=== PATIENT | female | born 1990 | race African-American/Black ===

== ENCOUNTER 2022-03-26 01:51 | Emergency (ER) | payer MEDICAID ==
[~2022-03-26] VITALS: Ht 175.3 cm; Wt 220.0 kg
[2022-03-26 01:55] VITALS: BP 139/93
[2022-03-26] MEDS ORDERED: PREDNISONE 20MG TABLET PO ONE (02:30)
[2022-03-26] MEDS ORDERED: ALBU18HF2 IH (02:32)
[2022-03-26] MEDS ORDERED: P50 MT (02:32)
== END 2022-03-26 04:00 | disposition home or self-care (01) ==
LOC: ER 01:51
DX: J45.901 Unspecified asthma with (acute) exacerbation (principal); Z76.0 Encounter for issue of repeat prescription; F32.A Depression, unspecified; F41.9 Anxiety disorder, unspecified; Z88.8 Allergy status to other drugs, medicaments and biological substances; Z88.6 Allergy status to analgesic agent
CPT/HCPCS: 81025; 93005; 99283; J7512

== ENCOUNTER 2022-03-26 22:24 | Emergency (ER) | payer MEDICAID ==
[~2022-03-26] VITALS: Ht 167.6 cm; Wt 200.0 kg
[~2022-03-26 22:24] MED LIST: ALBU18HF2 IH; P50 MT
[2022-03-26 22:45] VITALS: BP 152/98
== END 2022-03-26 23:45 | disposition home or self-care (01) ==
LOC: ER 22:27
DX: Z76.5 Malingerer [conscious simulation] (principal); J45.909 Unspecified asthma, uncomplicated; E66.01 Morbid (severe) obesity due to excess calories; Z68.45 Body mass index [BMI] 70 or greater, adult; Z88.8 Allergy status to other drugs, medicaments and biological substances; Z88.6 Allergy status to analgesic agent
CPT/HCPCS: 99283

== ENCOUNTER 2022-05-21 01:45 | Emergency (ER) | payer MEDICAID ==
[~2022-05-21] VITALS: Ht 170.2 cm; Wt 170.0 kg
[2022-05-21 01:46] VITALS: BP 134/88
== END 2022-05-21 06:54 | disposition home or self-care (01) ==
LOC: ER 01:45
DX: R42 Dizziness and giddiness (principal); Z59.00 Homelessness unspecified; Z88.6 Allergy status to analgesic agent
CPT/HCPCS: 99283

== ENCOUNTER 2023-01-09 01:09 | Emergency (ER) | payer MEDICAID ==
[~2023-01-09] VITALS: Ht 167.6 cm; Wt 221.0 kg
[2023-01-09 01:11] VITALS: O2SAT 99
[2023-01-09] MEDS ORDERED: OLANZAPINE 5MG TABLET PO SCH (01:30)
[2023-01-09 02:16] LABS: HEMOGLOBIN. 9.8 g/dL (12.0-16.0)
[2023-01-09 02:18] VITALS: TEMP 98
[2023-01-09 02:25] LABS: PROTHROMBIN TIME 10.6 sec (9.6-11.0)
[2023-01-09 02:27] LABS: CHLORIDE 107 mEq/L (98-107); EOSINOPHILS % 4.6 % (0.0-5.0); INDEX HEMOLYSI 1 (1-3); INDEX ICTERIC 1 (1-4); INDEX LIPEMIC 1 (1-3); LYMPHOCYTES % 22.7 % (20.0-50.0); MONOCYTES % 10.6 % (2.0-8.0); NEUTROPHILS % 61.1 % (40.0-76.0); POTASSIUM 4.3 mEq/L (3.5-5.1); SODIUM 138 mEq/L (136-145)
[2023-01-09 02:28] LABS: HCG SCREEN NEGATIVE
[2023-01-09 02:32] LABS: DIFFERENTIAL COMMENT 1; WHITE BLOOD COUNT 5.3 x1000/uL (4.5-11.0)
[2023-01-09 02:33] LABS: HEMATOCRIT. 31.5 % (36.0-48.0); MEAN CORPUSCULAR HGB CONC 31.2 g/dL (31.0-37.0); MEAN CORPUSCULAR VOLUME 70.6 fL (81.0-99.0); RED BLOOD CELL COUNT 4.46 mill/uL (4.2-5.4); RED CELL DISTRIBUTION WIDTH 21.2 % (11.6-14.6)
[2023-01-09 02:34] LABS: ACETAMINOPHEN <2 ug/mL ug/mL (10-30); ALANINE AMINOTRANSFERASE 25 IU/L (13-61); ALBUMIN 3.4 g/dL (3.4-5.0); ASPARTATE AMINOTRANSFERASE 13 IU/L (15-37); BILIRUBIN TOTAL 0.3 mg/dL (0.1-1.0); CARBON DIOXIDE 27 mEq/L (21-32); CREATININE 0.6 mg/dL (0.6-1.3); GLUCOSE 87 mg/dL (70-105); PROTEIN TOTAL 8.5 g/dL (6.0-8.3); UREA NITROGEN BLOOD 15 mg/dL (7-21)
[2023-01-09 03:10] LABS: PLATELET 335 x1000/uL (130-400)
[2023-01-09 03:11] LABS: MEAN PLATELET VOLUME 7.5 fl (7.4-10.4)
[2023-01-09 06:00] VITALS: BP 174/81; PULSE 61; RESP 15
== END 2023-01-09 09:11 | disposition left against medical advice (07) ==
LOC: ER 01:09
DX: R45.851 Suicidal ideations (principal); E66.01 Morbid (severe) obesity due to excess calories; E11.9 Type 2 diabetes mellitus without complications; J45.909 Unspecified asthma, uncomplicated; Z91.148 Patient's other noncompliance with medication regimen for other reason; Z88.6 Allergy status to analgesic agent; Z88.8 Allergy status to other drugs, medicaments and biological substances; Z88.3 Allergy status to other anti-infective agents; Z91.048 Other nonmedicinal substance allergy status; Z88.9 Allergy status to unspecified drugs, medicaments and biological substances; Z68.45 Body mass index [BMI] 70 or greater, adult
CPT/HCPCS: 80053; 80307; 80329; 80320; 84703; 83690; 85025; 85610; 36415; 76700; 99284; Z7610; G0480